=== PATIENT | male | born 1950 | race Caucasian/White ===

== ENCOUNTER 2020-08-04 14:18 | Inpatient (IN) | payer MEDICARE, SELFPAY ==
[2020-08-04 14:25] VITALS: BP 157/84; BP 158/90; PULSE 59; PULSE 78; RESP 17; TEMP 36.5; O2SAT 98; BMI 23.6
--- NOTE | 2020-08-04 14:45 | ECG_ITS ---
Test Reason : DIZZINESS Blood Pressure : / mmHG Vent. Rate : 077 BPM Atrial Rate : 077 BPM P-R Int : 180 ms QRS Dur : 096 ms QT Int : 396 ms P-R-T Axes : 079 -31 048 degrees QTc Int : 448 ms Sinus rhythm with marked sinus arrhythmia with occasional Premature atrial complexes Left anterior fascicular block RSR' or QR pattern in V1 suggests right ventricular conduction delay Abnormal ECG When compared with ECG of 29-APR-2020 15:19, ST no longer depressed in Inferior leads Heart rate has increased Referred By: Jose A Griffin Electronically Signed By:MISTY BURNS MD
--- NOTE | 2020-08-04 14:57 | CT_ITS ---
EXAMINATION: CT ANGIOGRAM HEAD CT ANGIOGRAM NECK CLINICAL INFORMATION: Dizziness. Vision changes. COMPARISON: None available. TECHNIQUE: Initial noncontrast emergency medicine imaging of the head and neck was performed. Noncontrast head CT was also performed. Test bolus sequences followed by intravenous administration 70 mL of Omnipaque 350. Helical imaging was performed in the axial plane from the aortic arch to the skull vertex. Delayed postcontrast imaging of the head was also performed. The data was processed at the cat scan technologist's workstation for generation of MIP sequences. Angled MIPs and volume rendered reformatted images were also generated at an offline 3D workstation. Stenoses are assessed in accordance with NASCET criteria unless otherwise indicated. DLP: 2367 mGy-cm FINDINGS: CT Head: There is no evidence of acute intracranial hemorrhage or edematous territorial infarction. Lacunar infarct of the right caudate head. Scattered hypoattenuation in the periventricular and deep white matter are consistent with mild to moderate microangiopathy. No additional loss of lo-white matter differentiation. The ventricles are normal in size and configuration. No evidence for obstructive hydrocephalus. No abnormal mass effect or midline shift. No extra-axial fluid collections. No pathologic intra-axial enhancement or regional oligemia. No acute soft tissue or osseous abnormalities. Moderate leftward nasal septal deviation.Moderate mucosal thickening of the paranasal sinuses. The mastoid air cells and middle ear cavities remain well aerated. Moderate degenerative arthropathy of the temporomandibular joints. Limited evaluation of the orbits without demonstrated abnormalities. CT Neck: The thyroid gland and remaining cervical soft tissues are within normal limits. Advanced degenerative disc disease at C5-C6 and C6-C7 with disc-osteophyte complexes. Moderate facet and uncovertebral joint arthropathy leads to osseous encroachment on the left greater than right neural foramina. CT Upper Chest: The visualized lung apices and upper mediastinum are within normal limits. Neck CTA: Aortic Arch: Normal contour and caliber with mild calcific atherosclerotic disease. Classic 3 vessel branching pattern of the aortic arch. Great Vessel Origins: No significant stenosis of the branch origins. Right Common Carotid Artery: Normal opacification without focal stenosis or occlusion. Cervical Right Internal Carotid Artery: Calcific atherosclerotic disease of the carotid bulb and proximal internal carotid artery without flow-limiting stenosis. Left Common Carotid Artery: Normal opacification without focal stenosis or occlusion. Cervical Left Internal Carotid Artery: Calcific atherosclerotic disease of the carotid bulb and proximal internal carotid artery without flow-limiting stenosis. Cervical Right Vertebral Artery: Normal opacification without focal stenosis or occlusion. Cervical Left Vertebral Artery: Dominant. Calcific atherosclerotic disease causes mild to moderate narrowing of the origin. Otherwise, normal opacification without focal stenosis or occlusion. Brain CTA: Intracranial Internal Carotid Arteries: Calcific atherosclerotic disease of the intracranial internal carotid arteries without occlusion or flow-limiting stenosis. Otherwise, normal contrast opacification of the petrous, cavernous, paraophthalmic, and supraclinoid segments of the internal carotid arteries without focal stenosis. Normal opacification of the ophthalmic arteries. Right Anterior Cerebral Artery: Normal A1 segment. Normal opacification of the distal segments of the ABHISHEK. Left Anterior Cerebral Artery: Normal A1 segment. Normal opacification of the distal segments of the ABHISHEK. Anterior Communicating Artery: Normal. Right Middle Cerebral Artery: Normal opacification of the M1 segment of the MCA without focal stenosis or occlusion. Normal arborization of the distal segments. Left Middle Cerebral Artery: Normal opacification of the M1 segment of the MCA without focal stenosis or occlusion. Normal arborization of the distal segments. Potential 0.3 cm aneurysm versus prominent bend/infundibulum of an anterior temporal lobe branch arising from the undersurface of the M1-M2 junction (image [id number]). Right Vertebral Artery: Normal opacification of the V4 segment. The posterior inferior cerebellar artery is not well opacified; however, there is no CT evidence of acute occlusion. Left Vertebral Artery: Normal opacification of the V4 segment. Normal opacification of the proximal segments of the posterior inferior cerebellar artery. Basilar Artery: Normal opacification without focal stenosis or occlusion. Normal appearance of the proximal superior cerebellar arteries. Right Posterior Cerebral Artery: Normal P1 segment. Normal opacification of the distal segments of the ASSISTANT PRODUCER. Left Posterior Cerebral Artery: Normal P1 segment. Normal opacification of the distal segments of the ASSISTANT PRODUCER. Normal opacification of the superior sagittal, straight, transverse, and sigmoid sinuses. CT/CT angio head neck IMPRESSION: 1. No evidence of acute intracranial hemorrhage or edematous territorial infarction. 2. Lacunar infarct of the right caudate head. Mild to moderate underlying microangiopathy. 3. CTA of the head and neck without proximal occlusion or flow-limiting stenosis. Calcific atherosclerotic disease causes mild to moderate narrowing of the origin of the left vertebral artery. 4. 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 5. Moderate multilevel degenerative spondyloarthropathy of the cervical spine. 6. Moderate paranasal sinus disease.
[2020-08-04 15:14] LABS: MANUAL DIFF FLAG NO
[2020-08-04 15:15] LABS: Basophils Percent Auto 0.5 % (0-2); Eosinophils Absolute Auto 0.1 X10*3/uL (0.0-0.4); Eosinophils Percent Auto 1.4 % (0-4); Hematocrit 40.1 % (42-52); Hemoglobin 13.6 g/dl (14.0-18.0); Imm Gran Abs Auto 0.02 X10*3/uL (0.00-0.03); Imm Gran Pct Auto 0.3 % (0.0-0.4); Lymphocytes Absolute Auto 1.1 X10*3/uL (1.2-4.9); Lymphocytes Percent Auto 17.7 % (20-40); Mean Corpuscular HGB Conc 33.9 g/dl (31.0-36.0); Mean Corpuscular Hemoglobin 31.8 pg (27.0-33.0); Mean Corpuscular Volume 93.7 fL (80-98); Mean Platelet Volume 9.4 fL (9.4-12.4); Monocytes Absolute Auto 0.5 X10*3/uL (0.1-1.2); Monocytes Percent Auto 7.2 % (2-11); Neutrophils Absolute Auto 4.7 X10*3/uL (2.0-8.3); Neutrophils Percent Auto 72.9 % (45-73); Platelet Count 211 X10*3/uL (160-400); Red Blood Count 4.28 X10*6/uL (4.60-5.80); Red Cell Distribution Width 11.9 % (11.0-16.0); White Blood Count 6.4 X10*3/uL (4.8-10.8)
[2020-08-04 15:25] LABS: Prothrombin Time 11.5 SEC (10.8-13.0)
[2020-08-04 15:28] LABS: Partial Thromboplastin Time 33.8 SEC (24.1-38.0)
[2020-08-04 15:47] LABS: Alanine Aminotransferase 15 U/L (0-40); Albumin Level 4.2 g/dL (3.5-5.0); Alkaline Phosphatase 59 U/L (39-117); Anion Gap 14 (12-20); Aspartate Amino Transferase 23 U/L (5-37); Bilirubin Total 0.7 mg/dL (0.0-1.0); Blood Urea Nitrogen 13 mg/dL (9-16); Carbon Dioxide 28 mmol/L (22-29); Chloride 100 mmol/L (96-108); Creatinine Clr Calc Pharmacy 72.5; Estimated Glomerular Filt Rate > 60; Glucose Random 112 mg/dL (60-115); Potassium 4.5 mmol/l (3.3-5.1); Sodium 137 mmol/L (135-145); Total Protein 7.2 g/dL (6.5-8.0)
[2020-08-04 15:51] LABS: Troponin-I High Sensitivity < 3.5 ng/L (<3.5-35.0)
[2020-08-04 16:19] VITALS: BP 137/76; PULSE 70; PULSE 73; RESP 16; O2SAT 98
[2020-08-04 16:20] VITALS: BP 141/94; BP 151/84; PULSE 72; PULSE 91
[2020-08-04] MEDS: iohexoL 350 MG/ML 100 ML INFUS..BTL IV (16:22)
--- NOTE | 2020-08-04 16:49 | ED.DIZZY ---
HPI - Dizziness General Chief Complaint: Dizziness Stated Complaint: vertigo Time Seen by Provider: 08/04/20 14:34 History of Present Illness HPI Narrative: Patient patient complains of dizziness double vision and difficulty ambulating which was noted when he neha from sleep this morning which is 4-1/2 hours ago, he went to sleep at about 11 30 and did not get up from bed until 10 30 in the morning and is not certain of when the symptoms began . He felt well and normal when he went to bed at 23:30 He has no headache he has no weakness to any arm or leg he has no trouble forming his words, he had no chest pain no palpitations no shortness of breath no fever Related Data Home Medications Medication Instructions Recorded Confirmed losartan 1 tab PO DAILY 08/04/20 08/04/20 Allergies Allergy/AdvReac Type Severity Reaction Status Date / Time penicillin V Allergy Unknown Verified 06/11/15 00:00 Penicillins [PENICILLINS] Allergy Unknown UNKNOWN-CHILDHOOD Unverified 06/03/20 15:03 REACTION Review of Systems Review of Systems: ROS is positive for dizziness, double vision, difficulty ambulating due to poor balance There is no headache no confusion no trouble speaking, no neck pain no limb weakness no chest pain or shortness of breath no palpitations, no fever no chills no cough, no abdominal pain no vomiting, no rash [facility] Past Medical History Attestation statement: The following information was validated with the patient. [facility] Narrative: Medical history is hypertension Medical History (Updated 08/04/20 @ 19:10 by SUE Garcia) Hypertension Social History Social History Smoked in Last 30 Days: No Use of substances other than those prescribed or required for medical reasons: No Advance Directives: No Advance Directives Information Provided: Yes Physical Exam Vital Signs: Vital Signs: Last Vital Signs Temp 97.7 F 08/04/20 14:25 Pulse 69 08/04/20 18:19 Resp 15 08/04/20 18:19 BP 126/79 08/04/20 18:19 Pulse Ox 99 08/04/20 18:19 Body Mass Index 23.6 Patient is A&O x3, no acute distress, speaking normally intelligently and interacting normally as he lays in bed Dr. elvis morales Bilateral ear exam is normal The neck is supple The chest is clear to auscultation bilaterally The heart no murmur auscultated The abdomen is soft nontender neck extremities are full range of motion x4 the skin no rash the neuro exam is done lying in bed as the patient was too dizzy to walk Motor strength was 5/5 x4 with equal symmetrical strength in legs and arms he could raise arms lift legs There was a gaze palsy on medial gaze of the left eye and his double vision did correct when he closed 1 eye but returned with both, cranial nerve exam was otherwise normal as tested Finger to nose was difficult with both eyes open but he was able to deny closed, speech was normal and gait was not tested NIH Stroke Scale Internal: Initial- Upon Arrival Level of Consciousness: Alert Level of Consciousness Questions: Answers both questions correctly Level of Consciousness Commands: Performs both tasks correctly Best Gaze: Partial gaze palsy Visual: No visual loss Facial Palsy: Normal Motor Arm (Right): No drift Motor Arm (Left): No drift Motor Leg (Right): No drift Motor Leg (Left): No drift Limb Ataxia: Absent Sensory: Normal Best Language: No aphasia Dysarthia: Normal Extinction and Inattention: No abnormality Score: 1 MDM - Dizziness MDM Narrative Medical decision making narrative: Patient was seen 4-1/2 hours after he 1st noticed his symptoms on waking which is outside the window for thrombolytics He is not aware of when his symptoms began as he went to sleep feeling normal and when he woke up he was symptomatic so it is unclear if symptoms began during the night. He did not wake up or get up during the night CTA did not reveal any bleed or acute thrombus and patient was admitted to medical service for stroke Differential Diagnosis Differential diagnosis: Likely cerebrovascular accident and transient cerebral ischemia Lab Data Attestation: I reviewed the patient's lab results. Result diagrams: 08/04/20 15:08 08/04/20 15:08 Labs: Lab Results 08/04/20 08/04/20 08/04/20 Range/Units 15:08 15:08 15:08 WBC 6.4 (4.8-10.8) X10*3/uL RBC 4.28 L (4.60-5.80) X10*6/uL Hgb 13.6 L (14.0-18.0) g/dl Hct 40.1 L (42-52) % MCV 93.7 (80-98) fL MCH 31.8 (27.0-33.0) pg MCHC 33.9 (31.0-36.0) g/dl RDW 11.9 (11.0-16.0) % Plt Count 211 (160-400) X10*3/uL MPV 9.4 (9.4-12.4) fL Immature Gran % (Auto) 0.3 (0.0-0.4) % Neut % (Auto) 72.9 (45-73) % Lymph % (Auto) 17.7 L (20-40) % [place] % (Auto) 7.2 (2-11) % Eos % (Auto) 1.4 (0-4) % Baso % (Auto) 0.5 (0-2) % Lymph # (Auto) 1.1 L (1.2-4.9) X10*3/uL [place] # (Auto) 0.5 (0.1-1.2) X10*3/uL Eos # (Auto) 0.1 (0.0-0.4) X10*3/uL Baso # (Auto) 0.0 (0.0-0.2) X10*3/uL Abs Immat Gran (auto) 0.02 (0.00-0.03) X10*3/uL Absolute Neuts (auto) 4.7 (2.0-8.3) X10*3/uL Absolute Nucleated RBC 0.000 (0.0-0.012) X10*3/uL Nucleated RBC % (auto) 0.0 (0.0-0.2) /100WBC PT (10.8-13.0) SEC INR (0.9-1.1) APTT (24.1-38.0) SEC Sodium 137 (135-145) mmol/L Potassium 4.5 (3.3-5.1) mmol/l Chloride 100 (96-108) mmol/L Carbon Dioxide 28 (22-29) mmol/L Anion Gap 14 (12-20) BUN 13 (9-16) mg/dL Creatinine 0.93 (0.5-1.4) mg/dL Estim Creat Clear Calc 72.5 Estimated GFR > 60 Random Glucose 112 (60-115) mg/dL Calcium 9.0 (8.4-10.2) mg/dL Total Bilirubin 0.7 (0.0-1.0) mg/dL AST 23 (5-37) U/L ALT 15 (0-40) U/L Alkaline Phosphatase 59 (39-117) U/L Troponin I High Sens < 3.5 (<3.5-35.0) ng/L Total Protein 7.2 (6.5-8.0) g/dL Albumin 4.2 (3.5-5.0) g/dL 11/18/20 Range/Units 15:08 WBC (4.8-10.8) X10*3/uL RBC (4.60-5.80) X10*6/uL Hgb (14.0-18.0) g/dl Hct (42-52) % MCV (80-98) fL MCH (27.0-33.0) pg MCHC (31.0-36.0) g/dl RDW (11.0-16.0) % Plt Count (160-400) X10*3/uL MPV (9.4-12.4) fL Immature Gran % (Auto) (0.0-0.4) % Neut % (Auto) (45-73) % Lymph % (Auto) (20-40) % [place] % (Auto) (2-11) % Eos % (Auto) (0-4) % Baso % (Auto) (0-2) % Lymph # (Auto) (1.2-4.9) X10*3/uL [place] # (Auto) (0.1-1.2) X10*3/uL Eos # (Auto) (0.0-0.4) X10*3/uL Baso # (Auto) (0.0-0.2) X10*3/uL Abs Immat Gran (auto) (0.00-0.03) X10*3/uL Absolute Neuts (auto) (2.0-8.3) X10*3/uL Absolute Nucleated RBC (0.0-0.012) X10*3/uL Nucleated RBC % (auto) (0.0-0.2) /100WBC PT 11.5 (10.8-13.0) SEC INR 1.0 (0.9-1.1) APTT 33.8 (24.1-38.0) SEC Sodium (135-145) mmol/L Potassium (3.3-5.1) mmol/l Chloride (96-108) mmol/L Carbon Dioxide (22-29) mmol/L Anion Gap (12-20) BUN (9-16) mg/dL Creatinine (0.5-1.4) mg/dL Estim Creat Clear Calc Estimated GFR Random Glucose (60-115) mg/dL Calcium (8.4-10.2) mg/dL Total Bilirubin (0.0-1.0) mg/dL AST (5-37) U/L ALT (0-40) U/L Alkaline Phosphatase (39-117) U/L Troponin I High Sens (<3.5-35.0) ng/L Total Protein (6.5-8.0) g/dL Albumin (3.5-5.0) g/dL Imaging Data CT scan - head: Radiologist's impression: MPRESSION: 1. No evidence of acute intracranial hemorrhage or edematous territorial infarction. 2. Lacunar infarct of the right caudate head. Mild to moderate underlying microangiopathy. 3. CTA of the head and neck without proximal occlusion or flow-limiting stenosis. Calcific atherosclerotic disease causes mild to moderate narrowing of the origin of the left vertebral artery. 4. 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 5. Moderate multilevel degenerative spondyloarthropathy of the cervical spine. 6. Moderate paranasal sinus disease. ECG Data Attestation: I personally reviewed and interpreted this ECG as follows: Interpretation: EKG was rate 77 with a sinus rhythm with a sinus arrhythmia p.r. was 180 QRS is 96 QT was normal, no acute ST changes noted Discharge Plan Discharge Clinical Impression: Acute ischemic stroke Patient Disposition: Admitted As Inpatient
--- NOTE | 2020-08-04 17:29 | MHC.STROKE ---
Addendum entered by Caterina Dumont RN 08/06/20 13:52: 08/05/20 at 1917, I NOTIFIED DR ANGEL OF THE MRI RESULTS, HE ADVISED TO FOLLOW THE STROKE MEASURES, ALL MEASURES IN PLACE. Addendum entered by Caterina Dumont RN 08/04/20 22:56: NIHSS = 3 was done on 08/04/20 at 1600. Original Note: I WAS NOTIFIED BY ED PA OF POTENTIAL STROKE PATIENT. I MET WITH THE PATIENT HE WALKED 2 MILES YESTERDAY. HE WENT TO BED AT 2330. HE WOKE AT 0700 AND 0900 AND LOOKED AT THE CLOCK, AND WENT TO THE BATHROOM. NO SYMPTOMS. HE SLEPT UNTIL 1030 AND WHEN HE WOKE THE CLOCK WAS VERY BLURRY WHEN BOTH EYES WERE OPEN. HE SAID HIS GAIT WAS OFF AND NEEDED TO HAVE HELP AND USE A WALKER TO GO TO THE BATHROOM. HE WAITED TO CALL 911 AND DID SO BECAUSE HE COUDLN'T GET HIMSELF TO THE CAR. LAST KNOWN WELL 0900, SYMPTOMS DISCOVERED 1030 THEREFORE OUT OF THE WINDOW FOR TPA ([place]TEPL[place]). CT-CTA H/N ORDERED, NO BLEED, NO LVO (LARGE VESSEL OCCLUSION). PATIENT CAN BE ADMITTED AT [facility]. MRI, ECHO, STATIN, PASSED HIS SWALLOW SCREEN, ASPIRIN GIVEN IN ED, PT/OT, STROKE EDUCATION INITIATED BUT HE WILL NEED REINFORCEMENT, I WILL FOLLOW UP WITH HIM TOMORROW. I DID REVIEW THE PLAN OF CARE WITH HIM, HE WAS CALLING HIS . NEUROLOGY CONSULT PENDING. NIHSS = 3.
[2020-08-04] MEDS: Aspirin 325 MG TABLET PO (17:45)
[2020-08-04 18:19] VITALS: BP 126/79; PULSE 69; RESP 15; O2SAT 99
[2020-08-04 19:12] LABS: COVID-19 Test Negative (Negative)
--- NOTE | 2020-08-04 19:52 | P.HPHOSP_ITS ---
History of Present Illness Date of Service: 08/04/20 Chief Complaint: blurry vision, unsteady gait this is a 70-year-old male with history of alcohol abuse, hypertension who presented to the emergency department with unsteady gait and blurry vision. Patient was in his usual state of health until he woke up around 10:30 this morning. when he tried to put on his socks noticed that he had blurry vision. he had woken several times overnight and was able to read the clock so he does not think his blurry vision was present prior to waking up at 10:30. He also noticed he felt off balance when walking and had to hold on to furniture so he would not fall. Patient underwent brain CT and head and neck CTA in the ED which showed lacunar infarct of the right caudate head with without occlusion or flow limiting stenosis on CTA. Lab work was unremarkable. Review of Systems Review of Systems: Yes all other systems are reviewed and are negative Constitutional: Constitutional: Denies headache(s) and Denies weakness ENT: Denies headache(s) Cardiovascular: Cardiovascular: Denies chest pain, Denies palpitations, Denies dyspnea and Denies dyspnea on exertion Respiratory: Respiratory: Denies dyspnea and Denies dyspnea on exertion Gastrointestinal: Gastrointestinal: Denies nausea and Denies vomiting Musculoskeletal: Musculoskeletal: Denies numbness Neurologic: Denies headache(s), Denies numbness, Reports Other visual disturbances (blurry vision that improves with closing left eye) and Denies weakness Endocrine: Endocrine: Denies palpitations [facility] Medical History (Updated 08/05/20 @ 11:23 by Ariana Mcfarland MD) Alcohol abuse Hypercholesteremia Hypertension Family History (Updated 08/04/20 @ 20:00 by SUE Raya) Mother Dementia Surgical History H/O inguinal hernia repair Social History (Updated 08/04/20 @ 20:01 by SUE Raya) Household Members: Spouse Housing: House Do you presently have visiting nurse or other home services: No Alcohol intake: current Alcohol intake frequency: 3 or more drinks per day Alcohol type: beer and hard liquor Smoking Status: Never smoker Smoked in Last 30 Days: No Use of substances other than those prescribed or required for medical reasons: No Substance Use Type: Marijuana Have you been hit, kicked, punched, or otherwise hurt by someone within the past year? If so, by whom?: No Do you feel safe in your current relationship?: Yes Is there a partner from a previous relationship who is making you feel unsafe now?: No Are you made to feel afraid or neglected: No Advance Directives: No Advance Directives Information Provided: Yes Advance Directives on File: No Do you have thoughts of harming others: None Do you have a plan to hurt others: No Plan Recently lost weight without trying: No service: No Current occupational status: retired [employer] Allergies Allergy/AdvReac Type Severity Reaction Status Date / Time penicillin V Allergy Unknown unknown-childhood Verified 08/05/20 00:24 rxn Home Medications Medication Instructions Recorded Confirmed Type losartan 1 tab PO DAILY 08/04/20 08/04/20 History Physical Exam Vital Signs and Narrative: Vital Signs: Last Vital Signs Temp 97.7 F 08/04/20 14:25 Pulse 69 08/04/20 18:19 Resp 15 08/04/20 18:19 BP 126/79 08/04/20 18:19 Pulse Ox 99 08/04/20 18:19 Body Mass Index 23.6 Const: Nutritional Appearance: well nourished Orientation/consciousness: patient oriented x3 HENMT: Head: Yes normocephalic and Yes atraumatic Eyes: Sclerae: sclerae normal Chest: Chest palpation & inspection: normal inspection of the chest Resp: Effort & Inspection: normal respiratory effort and no respiratory distress Auscultation: clear to auscultation bilaterally Cardio: Rate: regular rate Rhythm: regular rhythm GI: Palpation (GI): Soft to palpation and nontender Skin: General skin exam: no rashes or lesions noted Neuro: General: patient oriented x3 Cranial nerves: No Bilaterally intact EOM present (left eye palsy) and Yes Midline tongue present Motor exam (neuro): 5/5 motor strength present throughout Extrem: General: Yes normal to inspection Results Labs CBC and Chem 7: 08/05/20 05:26 08/05/20 05:26 Labs: Laboratory Results - last 24 hr 08/04/20 08/04/20 08/04/20 15:08 15:08 15:08 WBC 6.4 RBC 4.28 L Hgb 13.6 L Hct 40.1 L MCV 93.7 MCH 31.8 MCHC 33.9 RDW 11.9 Plt Count 211 MPV 9.4 Immature Gran % (Auto) 0.3 Neut % (Auto) 72.9 Lymph % (Auto) 17.7 L [place] % (Auto) 7.2 Eos % (Auto) 1.4 Baso % (Auto) 0.5 Lymph # (Auto) 1.1 L [place] # (Auto) 0.5 Eos # (Auto) 0.1 Baso # (Auto) 0.0 Abs Immat Gran (auto) 0.02 Absolute Neuts (auto) 4.7 Absolute Nucleated RBC 0.000 Nucleated RBC % (auto) 0.0 PT INR APTT Sodium 137 Potassium 4.5 Chloride 100 Carbon Dioxide 28 Anion Gap 14 BUN 13 Creatinine 0.93 Estim Creat Clear Calc 72.5 Estimated GFR > 60 Random Glucose 112 Calcium 9.0 Total Bilirubin 0.7 AST 23 ALT 15 Alkaline Phosphatase 59 Troponin I High Sens < 3.5 Total Protein 7.2 Albumin 4.2 COVID-19 ([facility]LO) COVID-19 [employer] 08/04/20 08/04/20 15:08 18:47 WBC RBC Hgb Hct MCV MCH MCHC RDW Plt Count MPV Immature Gran % (Auto) Neut % (Auto) Lymph % (Auto) [place] % (Auto) Eos % (Auto) Baso % (Auto) Lymph # (Auto) [place] # (Auto) Eos # (Auto) Baso # (Auto) Abs Immat Gran (auto) Absolute Neuts (auto) Absolute Nucleated RBC Nucleated RBC % (auto) PT 11.5 INR 1.0 APTT 33.8 Sodium Potassium Chloride Carbon Dioxide Anion Gap BUN Creatinine Estim Creat Clear Calc Estimated GFR Random Glucose Calcium Total Bilirubin AST ALT Alkaline Phosphatase Troponin I High Sens Total Protein Albumin COVID-19 ([facility]LO) Negative COVID-19 Clin Com See Note Imaging Radiologist's Impressions: Impressions Head/Neck CTA 08/04/20 14:57 IMPRESSION: 1. No evidence of acute intracranial hemorrhage or edematous territorial infarction. 2. Lacunar infarct of the right caudate head. Mild to moderate underlying microangiopathy. 3. CTA of the head and neck without proximal occlusion or flow-limiting stenosis. Calcific atherosclerotic disease causes mild to moderate narrowing of the origin of the left vertebral artery. 4. 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 5. Moderate multilevel degenerative spondyloarthropathy of the cervical spine. 6. Moderate paranasal sinus disease. Assessment and Plan (1) Ocular palsy of left eye: Status: Acute (2) Alcohol abuse: Status: Acute (3) Acute ischemic stroke: Status: Acute This is a 70-year-old male with a history of alcohol abuse and hypertension who presents to the emergency department the blurry vision and unsteady gait found to have left nerve palsy, lacunar infarct. blurry vision/unsteady gait Left eye palsy on exam, no other deficits noted Brain CT showing lacunar infarct - uncertain chronicity -neuro consult, brain MRI -PT/OT evaluation -ASA, statin -Can't rule out Wernicke's, given heavy alcohol use will treat with IV thiamine alcohol abuse No evidence of withdrawal at this time - start phenobarbital - IV thiamine - folic acid, multivitamin - care team evaluation HTN Hold losartan for possible stroke Follow BP closely dvt ppx - lovenox code status - full code This case was discussed with Dr. Zimmerman
--- NOTE | 2020-08-04 20:13 | PC.NURSE ---
REPORT TAKEN FROM RAI KABA, FIRST CONTACT WITH PT. RESTING IN BED SKIN PWD RESPIRATIONS EVEN UNLABORED. AWAITING BED ASSIGNMENT, AWARE OF PLAN OF CARE. REQUESTING FOOD. WILL CHECK MD ORDERS.
[2020-08-04 20:38] LABS: Magnesium 2.2 mg/dL (1.6-2.6)
--- NOTE | 2020-08-04 20:53 | PC.NURSE ---
PT CONTINUES TO AWAIT BED ASSIGNMENT FOR ADMISSION. PASSED SWALLOW EVAL. GIVEN SANDWICH AND PO FLUIDS. NO CHANGE IN PHYSICAL ASSESSMENT. USED URINAL WITHOUT ASSISTANCE. WILL CONTINUE TO MONITOR.
[2020-08-04 21:44] VITALS: BP 141/82; PULSE 75; RESP 18; TEMP 36.8; O2SAT 97
[2020-08-04] MEDS: PHENobarbitaL sodium 130 MG/ML VIAL 271 MG IM (22:32)
[2020-08-04] MEDS: Thiamine HCL 500 MG in 0.9 % Sodium Chloride 100 ML 210 MG IVPUSH (22:33)
--- NOTE | 2020-08-04 22:36 | P.EN_ITS ---
Event Note Date of Service: 08/04/20 Event Note: 70 y/o y/o male who presented from home due to unsteady gait and b lurry vision. To be admitted due to ischemic stroke, alcohol abuse. ROS and Physical exam as and H and P. PMHX: Alcohol abuse Hypertension PSx: H/O inguinal hernia repair Toxic habits: No hx of alcohol abuse, smoking or IVDA Assessment/Plan: 1- Ischemic stroke: Permissive hypertension, Tele monitor, neurochecks, follow up 2D echo, CTA head/neck reviewed, neurology consult in the am 2- Alcohol abuse: Start with thiamine/folate, advised alcohol cessation, phenorbital as per protocol Rest of the plan as discussed with SUE Villarreal per H and P
[2020-08-05] VITALS (7 sets, daily range): BP systolic 128–164; BP diastolic 79–104; PULSE 56–73; RESP 18; TEMP 36.6–37.1; O2SAT 94–100
--- NOTE | 2020-08-05 | MR_ITS ---
EXAMINATION: MR BRAIN WITHOUT CONTRAST CLINICAL INFORMATION: Blurry vision. Ataxia. Left eye palsy. COMPARISON: CTA head and neck from 08/04/2020. TECHNIQUE: MRI of the brain was obtained using routine sequences without contrast. FINDINGS: Subtle small region of restricted diffusion within the left midbrain (image 15/32). No additional focal restricted diffusion is demonstrated to suggest acute or subacute cerebral ischemia. Focus of susceptibility artifact within the left anterior mesial temporal lobe consistent with petechial microhemorrhage. Mild hemosiderin staining along the region of encephalomalacia in the left frontal operculum. Chronic appearing lacunar infarct of the right caudate head with surrounding T1 shortening. No evidence of acute Hemorrhagic products on heme-sensitive imaging. Scattered periventricular and deep white matter T2 FLAIR hyperintensities consistent with mild to moderate underlying microangiopathy. Proportional prominence of the ventricles and sulcal spaces without evidence of obstructive hydrocephalus.. No abnormal mass effect. No midline shift. Normal appearance of the pituitary gland. Normal positioning of the cerebellar tonsils. Normal arterial and venous vascular flow voids are present. Normal, homogeneous marrow signal. Moderate mucosal thickening of the paranasal sinuses with mucous retention cysts the in the right maxillary sinus. Small right-sided mastoid effusion. No signal abnormalities within the left-sided mastoid. MR/MR head/brain wo con IMPRESSION: 1. Small acute infarct of the left medial midbrain. 2. Moderate underlying microangiopathy. Chronic lacunar infarct of the right caudate head. Chronic encephalomalacia in the left frontal operculum. 3. Prominent sinonasal mucosal disease.
[2020-08-05] MEDS: Atorvastatin Calcium 80 MG TABLET PO ×2 (00:25→21:41)
[2020-08-05] MEDS: Folic Acid 1 MG TABLET PO ×2 (00:25→08:23)
[2020-08-05] MEDS: 0.9 % Sodium Chloride Flush 3 ML SYRINGE IVFLUSH ×4 (00:26→21:41)
[2020-08-05] MEDS: Enoxaparin Sodium 40 MG/0.4 ML SYRINGE SUBCUT ×2 (00:30→21:41)
[2020-08-05] MEDS: PHENobarbitaL sodium 130 MG/ML VIAL 203 MG IM ×2 (00:30→05:28)
[2020-08-05 06:43] LABS: MANUAL DIFF FLAG NO
[2020-08-05 07:02] LABS: Basophils Absolute Auto 0.1 X10*3/uL (0.0-0.2); Basophils Percent Auto 0.9 % (0-2); Eosinophils Absolute Auto 0.2 X10*3/uL (0.0-0.4); Eosinophils Percent Auto 3.6 % (0-4); Hematocrit 37.4 % (42-52); Hemoglobin 12.6 g/dl (14.0-18.0); Imm Gran Abs Auto 0.01 X10*3/uL (0.00-0.03); Imm Gran Pct Auto 0.2 % (0.0-0.4); Lymphocytes Absolute Auto 1.7 X10*3/uL (1.2-4.9); Lymphocytes Percent Auto 31.6 % (20-40); Mean Corpuscular HGB Conc 33.7 g/dl (31.0-36.0); Mean Corpuscular Hemoglobin 31.7 pg (27.0-33.0); Mean Platelet Volume 10.2 fL (9.4-12.4); Monocytes Absolute Auto 0.6 X10*3/uL (0.1-1.2); Neutrophils Percent Auto 53.7 % (45-73); Platelet Count 222 X10*3/uL (160-400); Red Blood Count 3.98 X10*6/uL (4.60-5.80); Red Cell Distribution Width 11.9 % (11.0-16.0); White Blood Count 5.5 X10*3/uL (4.8-10.8)
[2020-08-05 07:40] LABS: Anion Gap 11 (12-20); Blood Urea Nitrogen 14 mg/dL (9-16); Calcium 8.4 mg/dL (8.4-10.2); Carbon Dioxide 28 mmol/L (22-29); Chloride 103 mmol/L (96-108); Cholesterol 211 mg/dL; Creatinine Clr Calc Pharmacy 76.6; Estimated Glomerular Filt Rate > 60; Glucose Random 90 mg/dL (60-115); HDL Cholesterol 58 mg/dL; LDL Cholesterol Calculated 120 mg/dl; Potassium 3.8 mmol/l (3.3-5.1); Sodium 138 mmol/L (135-145); Triglycerides 167 mg/dL
[2020-08-05] MEDS: Aspirin Enteric Coated 81 MG TABLET.DR PO (08:23)
[2020-08-05] MEDS: PHENobarbitaL 15 MG TABLET 45 MG PO ×2 (08:24→21:41)
--- NOTE | 2020-08-05 10:21 | MHC.CARE ---
Recovery Support note: Patient is a 70 year old [place] speaking male who presented to [facility] ED and was medically admitted. Patient reports daily alcohol use and reports it has never been problematic for him. Patient states he has been drinking for a while and that it is a part of his daily routine. Patient reports he has never made any attempts to stop drinking as it has not interfered with his life. Patient reports his longest period of sobriety was 28 days, patient does not recall what he did during that period aside from not drinking. Discussed with patient how regular drinking can take a significant toll on his health and that it would be in his best interest to cut back or stop entirely. Patient acknowledged and reports he already decided that he would cut back. Patient reports he will stop drinking hard alcohol and will cut back on beer gradually. Discussed different forms of supports with patient, including IOP, outpatient therapy and AA. Patient is not interested in these supports at this time. Patient reports that he feels he will be able to manage on his own and with the support of friends and family. This development writer encouraged patient to think about about how he will fill his time after he leaves the hospital, patient acknowledged.
[2020-08-05] MEDS: Thiamine HCL 500 MG in 0.9 % Sodium Chloride 100 ML 210 MG IVPUSH (10:54)
--- NOTE | 2020-08-05 11:19 | P.CNNE_ITS ---
History of Present Illness Data of Consult Service Date: 08/05/20 Primary Care Provider: Alfredo Moody MD 70 years old man with chronic alcohol abuse was been actively drinking, at least 5-6 drinks a day, who noted that he was dizzy. This was yesterday. Around the same time he noted blurred vision actually double vision. When he tried to walk he was unsteady. There was no spinning sensation or mental confusion. There was no focal weakness. He came to emergency room and now he was lying in bed with the right eye patched. He said the double vision was noted when both eyes were open. He denied any difficulty with speaking, breathing, or swallowing. He denied any generalized weakness stating that he was unsteady. Review of Systems Constitutional: Constitutional: Denies headache(s) and Denies weakness ENT: Denies headache(s) Musculoskeletal: Musculoskeletal: Denies numbness Neurologic: Denies headache(s), Denies numbness, Reports Other visual disturbances (blurry vision that improves with closing left eye) and Denies weakness PMFSH Past Medical History Medical History (Updated 08/05/20 @ 11:23 by Ariana Mcfarland MD) Alcohol abuse Hypercholesteremia Hypertension Family History Family History (Updated 08/04/20 @ 20:00 by SUE Raya) Mother Dementia Surgical History Surgical History H/O inguinal hernia repair Social History Social History (Updated 08/04/20 @ 20:01 by SUE Raya) Household Members: Spouse Housing: House Do you presently have visiting nurse or other home services: No Alcohol intake: current Alcohol intake frequency: 3 or more drinks per day Alcohol type: beer and hard liquor Smoking Status: Never smoker Smoked in Last 30 Days: No Use of substances other than those prescribed or required for medical reasons: No Substance Use Type: Marijuana Have you been hit, kicked, punched, or otherwise hurt by someone within the past year? If so, by whom?: No Do you feel safe in your current relationship?: Yes Is there a partner from a previous relationship who is making you feel unsafe now?: No Are you made to feel afraid or neglected: No Advance Directives: No Advance Directives Information Provided: Yes Advance Directives on File: No Do you have thoughts of harming others: None Do you have a plan to hurt others: No Plan Recently lost weight without trying: No Meds Allergies Allergy/AdvReac Type Severity Reaction Status Date / Time penicillin V Allergy Unknown unknown-childhood Verified 08/05/20 00:24 rxn Home Medications Medication Instructions Recorded Confirmed Type losartan 1 tab PO DAILY 08/04/20 08/04/20 History Physical Exam Vital Signs: Vital Signs: Last Vital Signs Temp 97.8 F 08/05/20 07:55 Pulse 56 08/05/20 07:55 Resp 18 08/05/20 07:55 BP 148/85 H 08/05/20 07:55 Pulse Ox 98 08/05/20 07:55 Body Mass Index 23.6 He was alert and awake with normal spontaneity and fluency of speech and flat affect. He was talking slowly. Comprehension was intact. Pupils were about 3- 4 mm round reactive to light. Right eye did not come all the way laterally towards confucianist with the slight nystagmus horizontally in the left eye was stopping in the middle with rightward gaze. Face was symmetrical. There was no obvious focal arm or leg weakness. Moderate skyqtj-er-irib ataxia was noted. Kdon-fx-[id number] testing did not reveal any significant abnormality. Deep tendon reflexes were absent with flexor plantars. He was able to get up and walk in a slightly unsteady gait. Speech was normal. Results Labs CBC & Chem 7: 08/05/20 05:26 08/05/20 05:26 Labs: Short CBC 08/04/20 08/05/20 Range/Units 15:08 05:26 WBC 6.4 5.5 (4.8-10.8) X10*3/uL Hgb 13.6 L 12.6 L (14.0-18.0) g/dl Hct 40.1 L 37.4 L (42-52) % Plt Count 211 222 (160-400) X10*3/uL BMP 08/04/20 08/05/20 15:08 05:26 Sodium 137 138 Potassium 4.5 3.8 Chloride 100 103 Carbon Dioxide 28 28 BUN 13 14 Creatinine 0.93 0.88 Calcium 9.0 8.4 D Liver Function 08/04/20 Range/Units 15:08 Total Bilirubin 0.7 (0.0-1.0) mg/dL AST 23 (5-37) U/L ALT 15 (0-40) U/L Alkaline Phosphatase 59 (39-117) U/L Albumin 4.2 (3.5-5.0) g/dL His head CT revealed mild microvascular disease and mild diffuse atrophy. CTA did not reveal any significant lesion. 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 He was also unsteady. Mainstay of management is supplementation with thiamine and folate and B complex, hydration, completely quitting alcohol, and controlling vascular risk factors. An MRI brain is also recommended to define pathology. (2) Internuclear ophthalmoplegia: Status: Acute (3) Ataxia: Status: Acute (4) Chronic alcoholism: Status: Acute (5) Wernickes encephalopathy: Status: Acute Procedures Abscess I/D Date of Service: 08/05/20
--- NOTE | 2020-08-05 11:56 | MHC.CM.PN ---
CM met with patient at the bedside who reports he is independent and lives with . Patient does have a HCP and a copy is on file. Discussed discharge plan, home no services. February will provide transportation. CM will continue to follow patient for discharge needs.
--- NOTE | 2020-08-05 16:07 | HO.PM.IMPN ---
Subjective Subjective Date of Service: 08/05/20 Interval History: the patient was seen and evaluated this morning Laying in bed, feels comfortable Denies any fever, chills or shortness of breath Complaining of double vision No reported other overnight events. Systemic review: No fever, chills or weakness No chest pain, palpitation No shortness of breath or coughing No abdominal pain, nausea or vomiting No urinary symptoms No any rash or wounds Physical Exam Vital Signs: Vital Signs: Last Vital Signs Temp 98.1 F 08/05/20 15:24 Pulse 68 08/05/20 15:24 Resp 18 08/05/20 15:24 BP 141/89 H 08/05/20 15:24 Pulse Ox 100 08/05/20 15:24 Body Mass Index 23.6 Constitutional : Alert, oriented, not in distress Neck : Normal inspection, Supple Cardiovascular : RRR, S1 S2, no lower extremity edema Respiratory : Good bilateral air entry, no crackles, wheezes or rhonchi Gastrointestinal: soft, lax, Normal bowel sounds, Non tender Skin : Warm/Dry, No rash Neurological : Alert & oriented x3, double vision, left eye nystagmus horizontally, mild finger to nose ataxia Objective Data Current Medications Generic Name Dose Route Start Last Admin Trade Name Freq PRN Reason Stop Dose Admin Acetaminophen 650 mg 08/04/20 19:32 Acetaminophen 325 Mg Tablet PO Q6H PRN Pain, Mild (Pain Scale 1-3) Aspirin 81 mg 08/05/20 09:00 08/05/20 08:23 Aspirin Enteric Coated 81 Mg Tablet.Dr PO 81 mg DAILY DIANA Administration Atorvastatin Calcium 80 mg 08/04/20 21:00 08/05/20 00:25 Atorvastatin Calcium 80 Mg Tablet PO 80 mg BEDTIME [facility] Administration Docusate Sodium 100 mg 08/04/20 19:32 Docusate Sodium 100 Mg Capsule PO DAILY PRN Constipation Enoxaparin Sodium 40 mg 08/04/20 22:00 08/05/20 00:30 Enoxaparin Sodium 40 Mg/0.4 Ml Syringe SUBCUT 40 mg Q24H [facility] Administration Folic Acid 1 mg 08/04/20 19:55 08/05/20 08:23 Folic Acid 1 Mg Tablet PO 1 mg DAILY [facility] Administration Medication 1 each 08/05/20 09:00 No Benzodiazepines MISCELLANE DAILY [facility] Multivitamins/Minerals 1 tab 08/05/20 09:00 08/05/20 08:23 Multivitamin With Minerals Tablet PO 1 tab DAILY DIANA Administration Ondansetron HCl 4 mg 08/04/20 19:32 Ondansetron Hcl 4 Mg/2 Ml Vial IVPUSH Q8H PRN Nausea and Vomiting Pharmacy Consult 1 each 08/04/20 18:40 Consult Rx Perform Med Rec MISCELLANE ONCE PRN Consult order Pharmacy Consult 1 each 08/04/20 19:42 Consult Rx Etoh Phenob Dosing MISCELLANE ONCE PRN Consult order Protocol Phenobarbital 45 mg 08/05/20 09:00 08/05/20 08:24 Phenobarbital 15 Mg Tablet PO 08/06/20 21:01 45 mg BID DIANA Administration Phenobarbital 30 mg 08/07/20 09:00 Phenobarbital 30 Mg Tablet PO 08/08/20 21:01 BID DIANA Phenobarbital 15 mg 08/09/20 09:00 Phenobarbital 15 Mg Tablet PO 08/10/20 09:01 DAILY DIANA Sodium Chloride 3 ml 08/05/20 00:00 08/05/20 08:24 0.9 % Sodium Chloride Flush 3 Ml Syringe IVFLUSH 3 ml QSHIFT DIANA Administration Thiamine HCl 500 mg 08/05/20 21:00 Thiamine Hcl 100 Mg Tablet PO Q12H DIANA Labs CBC & Chem 7: 08/05/20 05:26 08/05/20 05:26 Assessment and Plan (1) Ocular palsy of left eye: Status: Acute (2) Alcohol abuse: Status: Acute (3) Acute ischemic stroke: Status: Acute Assessment and Plan: This is a 70-year-old male with a history of alcohol abuse and hypertension who presents to the emergency department the blurry vision and unsteady gait found to have left nerve palsy, lacunar infarct. 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 thiamine folic acid, multivitamin care team evaluation HTN Resume losartan Follow BP closely dvt ppx lovenox
[2020-08-05] MEDS: Thiamine HCL 100 MG TABLET 500 MG PO (21:40)
[2020-08-06 04:00] VITALS: BP 132/81; PULSE 77; RESP 18; TEMP 36.8; O2SAT 97
[2020-08-06 06:18] LABS: Hemoglobin 12.8 g/dl (14.0-18.0); Mean Corpuscular HGB Conc 34.6 g/dl (31.0-36.0); Mean Corpuscular Hemoglobin 32.2 pg (27.0-33.0); Mean Corpuscular Volume 93.2 fL (80-98); Mean Platelet Volume 10.1 fL (9.4-12.4); Platelet Count 208 X10*3/uL (160-400); Red Blood Count 3.97 X10*6/uL (4.60-5.80); Red Cell Distribution Width 11.9 % (11.0-16.0)
[2020-08-06 06:49] LABS: Anion Gap 12 (12-20); Blood Urea Nitrogen 14 mg/dL (9-16); Calcium 8.4 mg/dL (8.4-10.2); Carbon Dioxide 26 mmol/L (22-29); Chloride 103 mmol/L (96-108); Creatinine Clr Calc Pharmacy 77.5; Estimated Glomerular Filt Rate > 60; Glucose Random 86 mg/dL (60-115); Potassium 3.7 mmol/l (3.3-5.1); Sodium 137 mmol/L (135-145)
[2020-08-06 08:00] VITALS: BP 153/97; PULSE 67; RESP 20; TEMP 36.4; O2SAT 97
[2020-08-06] MEDS: Aspirin Enteric Coated 81 MG TABLET.DR PO (08:57)
[2020-08-06] MEDS: Folic Acid 1 MG TABLET PO (08:57)
[2020-08-06] MEDS: 0.9 % Sodium Chloride Flush 3 ML SYRINGE IVFLUSH (08:58)
[2020-08-06] MEDS: PHENobarbitaL 15 MG TABLET 45 MG PO (08:58)
[2020-08-06] MEDS: Thiamine HCL 100 MG TABLET 500 MG PO (08:58)
[2020-08-06 11:30] VITALS: BP 136/92; PULSE 91; RESP 20; TEMP 36.3; O2SAT 99
[2020-08-06 12:03] VITALS: BP 136/92; PULSE 91; O2SAT 99
--- NOTE | 2020-08-06 12:12 | MHC.CM.PN ---
patient is being discharged today home no services. Patient's june [phone] will provide transportation.
--- NOTE | 2020-08-06 12:23 | PM.DS ---
DS: Providers Provider Date of admission: 08/04/20 19:32 Primary care physician: Alfredo Moody MD Consults: 08/04/20 19:35 Consult to Neurology Routine Consulting Provider: [facility] Reason for consultation: blurry vision, left eye palsy, ataxia 08/04/20 19:42 Consult to Care Team Routine Comment: Reason for consultation: etoh use DS: Diagnosis Discharge Diagnosis (1) Ocular palsy of left eye: Status: Acute (2) Alcohol abuse: Status: Acute (3) Acute ischemic stroke: Status: Acute (4) Wernickes encephalopathy: Status: Acute (5) Chronic alcoholism: Status: Acute (6) Ataxia: Status: Acute (7) Internuclear ophthalmoplegia: Status: Acute (8) Double vision: Status: Acute DS: Medications Discharge Medications Home Medications: Home Medications Medication Instructions Recorded Confirmed losartan 1 tab PO DAILY 08/04/20 08/04/20 Previous Rx's Medication Instructions Recorded aspirin 81 mg PO DAILY #30 tab 08/06/20 atorvastatin 80 mg PO BEDTIME #30 tab 08/06/20 folic acid 1 mg PO DAILY #30 tab 08/06/20 multivitamin,tx-minerals [Vitamins 1 tab PO DAILY #30 tab 08/06/20 and Minerals] thiamine HCl (vitamin B1) 500 mg PO Q12H #60 tab 08/06/20 DS: Summary Hospital Course Hospital Course: Admission note HPI this is a 70-year-old male with history of alcohol abuse, hypertension who presented to the emergency department with unsteady gait and blurry vision. Patient was in his usual state of health until he woke up around 10:30 this morning. when he tried to put on his socks noticed that he had blurry vision. he had woken several times overnight and was able to read the clock so he does not think his blurry vision was present prior to waking up at 10:30. He also noticed he felt off balance when walking and had to hold on to furniture so he would not fall. Patient underwent brain CT and head and neck CTA in the ED which showed lacunar infarct of the right caudate head with without occlusion or flow limiting stenosis on CTA. Lab work was unremarkable. Hospital course The patient was admitted to the hospital for evaluation of ataxia and diplopia. Brain images including CT scan and MRI were consistent with acute left midbrain stroke causing internuclear ophthalmoplegia. He was evaluated by neurologist Dr. Mcfarland who thought also chronic alcohol abuse might be contributing to this and requested adding multivitamins treatment. He was started on aspirin, atorvastatin, thiamine, folate and multivitamins with fair response as his vision and gait improved. He was evaluated by Physical and Occupational therapy who felt the patient is safe enough to be discharged home. To be discharged with visiting nurses services for safe ambulation and movement. He was discussed about the need to completely quit alcohol. He seems to be interested in that and will try his best. To follow-up with PCP as outpatient Time Spent with Patient Time attestation: Total time spent providing and/or coordinating discharge services: Physical Exam Vital Signs: Vital Signs: Last Vital Signs Temp 98.1 F 08/05/20 15:24 Pulse 68 08/05/20 15:24 Resp 18 08/05/20 15:24 BP 141/89 H 08/05/20 15:24 Pulse Ox 100 08/05/20 15:24 Body Mass Index 23.6 Constitutional : Alert, oriented, not in distress Neck : Normal inspection, Supple Cardiovascular : RRR, S1 S2, no lower extremity edema Respiratory : Good bilateral air entry, no crackles, wheezes or rhonchi Gastrointestinal: soft, lax, Normal bowel sounds, Non tender Skin : Warm/Dry, No rash Neurological : Alert & oriented x3, double vision, left eye fixed in the middle, nystagmus horizontally, mild finger to nose ataxia DS: Data Data Completed and Pending Labs on day of discharge: 08/04/20 14:45 ECG 12 lead EKG Stat EKG Documentation DIRECTED 08/04/20 14:57 CT angio head neck Stat 08/04/20 15:08 Complete Blood Count Auto Diff Stat Comprehensive Met. Panel Stat Magnesium Stat Partial Thromboplastin Time Stat Prothrombin Time INR Stat Troponin-I High Sensitivity Stat 08/04/20 16:21 iohexoL 350 MG/ML [Omnipaque 350 MG/ML] 100 ml IV ONCE ONE 08/04/20 17:20 Aspirin 325 mg PO ONCE ONE 08/04/20 18:40 Consult Rx Perform Med Rec 1 each MISCELLANE ONCE PRN 08/04/20 18:47 COVID-19 ID NOW ([place]) Stat 08/04/20 19:42 Consult Rx EtOH Phenob Dosing 1 each MISCELLANE ONCE PRN 11/18/20 19:49 Transfer Order Routine 08/04/20 20:15 PHENobarbitaL sodium 271 mg IM ONCE ONE 08/04/20 20:15 Add Laboratory Test Stat 08/04/20 21:00 Thiamine HCL 500 mg 0.9 % Sodium Chloride [Ns] 100 ml IVPUSH Q12H Thiamine HCL 500 mg 0.9 % Sodium Chloride [Ns] 100 ml IVPUSH Q12H 08/05/20 MR head/brain wo con Routine 08/05/20 00:00 PHENobarbitaL sodium 203 mg IM 0000,0300 08/05/20 01:00 PHENobarbitaL sodium 203 mg IM 0100,0400 08/05/20 05:26 Basic Metabolic Panel DAILY@0600 Complete Blood Count Auto Diff DAILY@0600 Lipid Panel Routine 08/06/20 05:16 Basic Metabolic Panel DAILY@0600 Complete Blood Count no Diff DAILY@0600 Laboratory Last Values WBC 5.0 X10*3/uL (4.8-10.8) 08/06/20 05:16 RBC 3.97 X10*6/uL (4.60-5.80) L 08/06/20 05:16 Hgb 12.8 g/dl (14.0-18.0) L 08/06/20 05:16 Hct 37.0 % (42-52) L 08/06/20 05:16 MCV 93.2 fL (80-98) 08/06/20 05:16 MCH 32.2 pg (27.0-33.0) 08/06/20 05:16 MCHC 34.6 g/dl (31.0-36.0) 08/06/20 05:16 RDW 11.9 % (11.0-16.0) 08/06/20 05:16 Plt Count 208 X10*3/uL (160-400) 08/06/20 05:16 MPV 10.1 fL (9.4-12.4) 08/06/20 05:16 Immature Gran % (Auto) 0.2 % (0.0-0.4) 08/05/20 05:26 Neut % (Auto) 53.7 % (45-73) 08/05/20 05:26 Lymph % (Auto) 31.6 % (20-40) 08/05/20 05:26 [place] % (Auto) 10.0 % (2-11) 08/05/20 05:26 Eos % (Auto) 3.6 % (0-4) 08/05/20 05:26 Baso % (Auto) 0.9 % (0-2) 08/05/20 05:26 Lymph # (Auto) 1.7 X10*3/uL (1.2-4.9) 08/05/20 05:26 [place] # (Auto) 0.6 X10*3/uL (0.1-1.2) 08/05/20 05:26 Eos # (Auto) 0.2 X10*3/uL (0.0-0.4) 08/05/20 05:26 Baso # (Auto) 0.1 X10*3/uL (0.0-0.2) 08/05/20 05:26 Abs Immat Gran (auto) 0.01 X10*3/uL (0.00-0.03) 08/05/20 05:26 Absolute Neuts (auto) 3.0 X10*3/uL (2.0-8.3) 08/05/20 05:26 Absolute Nucleated RBC 0.000 X10*3/uL (0.0-0.012) 08/06/20 05:16 Nucleated RBC % (auto) 0.0 /100WBC (0.0-0.2) 08/06/20 05:16 PT 11.5 SEC (10.8-13.0) 08/04/20 15:08 INR 1.0 (0.9-1.1) 08/04/20 15:08 APTT 33.8 SEC (24.1-38.0) 08/04/20 15:08 Sodium 137 mmol/L (135-145) 08/06/20 05:16 Potassium 3.7 mmol/l (3.3-5.1) 08/06/20 05:16 Chloride 103 mmol/L (96-108) 08/06/20 05:16 Carbon Dioxide 26 mmol/L (22-29) 08/06/20 05:16 Anion Gap 12 (12-20) 08/06/20 05:16 BUN 14 mg/dL (9-16) 08/06/20 05:16 Creatinine 0.87 mg/dL (0.5-1.4) 08/06/20 05:16 Estim Creat Clear Calc 77.5 08/06/20 05:16 Estimated GFR > 60 08/06/20 05:16 Random Glucose 86 mg/dL (60-115) 08/06/20 05:16 Calcium 8.4 mg/dL (8.4-10.2) 08/06/20 05:16 Magnesium 2.2 mg/dL (1.6-2.6) 08/04/20 15:08 Total Bilirubin 0.7 mg/dL (0.0-1.0) 08/04/20 15:08 AST 23 U/L (5-37) 08/04/20 15:08 ALT 15 U/L (0-40) 08/04/20 15:08 Alkaline Phosphatase 59 U/L (39-117) 08/04/20 15:08 Troponin I High Sens < 3.5 ng/L (<3.5-35.0) 08/04/20 15:08 Total Protein 7.2 g/dL (6.5-8.0) 08/04/20 15:08 Albumin 4.2 g/dL (3.5-5.0) 08/04/20 15:08 Triglycerides 167 mg/dL 08/05/20 05:26 Cholesterol 211 mg/dL 08/05/20 05:26 LDL Cholesterol, Calc 120 mg/dl 08/05/20 05:26 HDL Cholesterol 58 mg/dL 08/05/20 05:26 COVID-19 ([facility]ARLO) Negative (Negative) 08/04/20 18:47 COVID-19 Clin Com See Note 08/04/20 18:47 Brain MRI IMPRESSION: 1. Small acute infarct of the left medial midbrain. 2. Moderate underlying microangiopathy. Chronic lacunar infarct of the right caudate head. Chronic encephalomalacia in the left frontal operculum. 3. Prominent sinonasal mucosal disease. Brain CT A IMPRESSION: 1. No evidence of acute intracranial hemorrhage or edematous territorial infarction. 2. Lacunar infarct of the right caudate head. Mild to moderate underlying microangiopathy. 3. CTA of the head and neck without proximal occlusion or flow-limiting stenosis. Calcific atherosclerotic disease causes mild to moderate narrowing of the origin of the left vertebral artery. 4. 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 5. Moderate multilevel degenerative spondyloarthropathy of the cervical spine. 6. Moderate paranasal sinus disease. Discharge Plan Discharge Patient Disposition: Home Health Service Referrals: Alfredo Moody MD [Primary Care Provider] - Discharge Medications: New atorvastatin 80 mg Tablet 80 mg PO BEDTIME Qty: 30 RF: 0 aspirin 81 mg Tablet,Delayed Release (Dr/Ec) 81 mg PO DAILY Qty: 30 RF: 0 folic acid 1 mg Tablet 1 mg PO DAILY Qty: 30 RF: 2 thiamine HCl (vitamin B1) 100 mg Tablet 500 mg PO Q12H Qty: 60 RF: 2 Vitamins and Minerals Tablet 1 tab PO DAILY Qty: 30 RF: 2 Continued losartan 25 mg tablet 1 tab PO DAILY RF: 0 Discharge Orders: Discharge Order (Routine); Ordered 08/06/20 Ordered By: Sammi Martinez Diet: advance to usual diet Activity on Discharge: As tolerated Visit Report Forms: Patient Portal Discharge page Care Plan Goals: Read below Health Concerns: Read below Plan of Treatment: You were admitted to the hospital for evaluation of double vision and unsteady gait. Your symptoms were concerning for alcohol induced brain injury and you were started on vitamin replacement therapy. Images for your brain including a CT scan and MRI were consistent with small acute stroke to mid-brain. You were evaluated by neurologist Dr. Mcfarland who recommended treatment for the stroke and total abstinence from alcohol. Start aspirin and statin as prescribed Quit alcohol completely Please call [phone] to schedule a follow-up visit with Dr. Mcfarland within 2 weeks To do home therapy with visiting nurses
== END 2020-08-06 14:30 | disposition home health service (06) | DRG 65 ==
LOC: HO.ED 19:10 → HO.IMC 21:11
PROVIDERS: Physician Assistant Medical; Admitting Provider Internal Medicine; Emergency Provider Emergency Medicine; PCP Internal Medicine; Visit Provider Student in an Organized Health Care Education/Training Program
DX: I63.9 Cerebral infarction, unspecified (principal); E51.2 Wernicke's encephalopathy; H51.22 Internuclear ophthalmoplegia, left eye; E78.00 Pure hypercholesterolemia, unspecified; I10 Essential (primary) hypertension; R29.703 NIHSS score 3; F10.20 Alcohol dependence, uncomplicated; Z20.828 Contact with and (suspected) exposure to other viral communicable diseases; Z88.0 Allergy status to penicillin; Z79.82 Long term (current) use of aspirin; Z79.899 Other long term (current) drug therapy
CPT/HCPCS: 36415; 70496; 70498; 70551; 80048; 80053; 80061; 83735; 84484; 85025; 85027; 85610; 85730; 87635; 93005; 97116; 97161; 97167; 97530; 99285; J1650; J2560; J3411; Q9967

== ENCOUNTER → 2020-08-23 08:23 | Outpatient (REF) | payer MEDICARE, BC, SELFPAY ==
--- NOTE | 2020-08-23 08:30 | CA_ITS ---
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 The visually estimated ejection fraction is between 55-60%. - There is mild calcification of the aortic valve. - There is mild mitral annular calcification. - There is mild dilatation of the ascending aorta measuring 4.10 cm. Findings Left Ventricle Normal left ventricular cavity size. There is normal left ventricular wall thickness. The left ventricular systolic function is normal. The visually estimated ejection fraction is between 55-60%. There is no evidence of regional wall motion abnormalities. Diastolic function is indeterminate on the basis of available data. Right Ventricle Normal right ventricular cavity size and systolic function. Atria Both atria are normal in size. Aortic Valve There is mild calcification of the aortic valve. There is no aortic valve stenosis. There is trace (trivial) aortic valve regurgitation. Mitral Valve There is mild mitral annular calcification. There is trace mitral valve regurgitation. There is no mitral valve stenosis. Pulmonic Valve The pulmonic valve was not well visualized. There is trace to mild pulmonic valve regurgitation. Tricuspid Valve Normal tricuspid valve structure. There is trace tricuspid valve regurgitation. The pulmonary artery systolic pressure is normal. Great Vessels There is mild dilatation of the ascending aorta measuring 4.10 cm. Venous The inferior vena cava is normal in size and collapses greater than 50% with inspiration. Pericardium/Pleural There is no evidence of pericardial effusion. Prior Study Comparison Changes noted compared to prior study dated: 07/20/2017. Increase in ascending aortic size. Measurements 2D Linear Measurements IVSd: 0.92 0.6-0.9/0.6-1.0 cm LVIDd: 5.31 3.9-5.3/4.2-5.9 cm LVIDd Index: 2.93 2.4-3.2/2.2-3.1 cm/m2 LVIDs: 3.24 2.0-3.6 cm LVPWd: 0.88 0.7-1.1 cm Ao Root: 3.40 2.1-3.5 cm LA Diam: 2.50 2.7-3.8/3.0-4.0 cm LAIDs Index: 1.38 1.5-2.3 cm/m2 LV Mass: 217.93 67-162/88-224 g LV Mass Index: 120.41 43-95/49-115 g/m2 LVOT Diam: 2.20 3.0+(-)1.3 cm 2D Systolic Function EF 4C: 60.40 >55% EF 2C: 53.10 >55% EF BiP: 58.10 >55% Mitral Valve MV Pk E: 0.57 MV PK A: 0.47 MV Decel Time: 345.00 E/A: 1.20 E'Lateral: 12.10 E'Medial: 6.96 E/E' Med: 8.20 E/E' Lat: 4.70 PHT: 101.00 MVA PHT: 2.18 Decel [place]: 1.64 Aortic Valve AoV Pk Nasir: 1.32 AoV Pk Grad: 7.00 LVOT LVOT Pk Nasir: 1.03 LVOT Mn Nasir: 0.68 LVOT VTI: 0.24 LVOT Pk Grad: 4.00 LVOT Mn Grad: 2.00 LVOT Diam: 2.20 LVOT Area: 3.80 Diastolic Function MV Pk E: 0.57 MV Pk A: 0.47 E/A: 1.20 E'Medial: 6.96 E/E' Med: 8.20 E' Laterial: 12.10 E/E' Lat: 4.70 Tricuspid Valve TR Pk Nasir: 2.21 TR Pk Grad: 20.00 RA Press: 3.00 RVSP: 23.00 Great Vessels Aorta Ao Root-2D: 3.40 2.0-3.7 cm Ao Asc: 4.10 2.1-3.4 cm Updated in Other Vendor System with Status of Final Pedro Luis Nunez MD electronically signed on 08/23/2020 11:12:07 AM with status of Final
== END ==
LOC: HO.CARD 08:23
PROVIDERS: PCP Internal Medicine; Visit Provider Internal Medicine
DX: I49.3 Ventricular premature depolarization (principal); I49.9 Cardiac arrhythmia, unspecified; Z86.73 Personal history of transient ischemic attack (TIA), and cerebral infarction without residual deficits
CPT/HCPCS: 93306

== ENCOUNTER 2020-12-29 08:28 | Outpatient (REF) | payer MEDICARE, BC, SELFPAY ==
[2020-12-29 10:31] LABS: MANUAL DIFF FLAG NO
[2020-12-29 11:00] LABS: Basophils Absolute Auto 0.1 X10*3/uL (0.0-0.2); Basophils Percent Auto 0.9 % (0-2); Eosinophils Absolute Auto 0.3 X10*3/uL (0.0-0.4); Eosinophils Percent Auto 4.9 % (0-4); Hematocrit 39.6 % (42-52); Hemoglobin 13.1 g/dl (14.0-18.0); Imm Gran Abs Auto 0.02 X10*3/uL (0.00-0.03); Imm Gran Pct Auto 0.4 % (0.0-0.4); Lymphocytes Absolute Auto 1.9 X10*3/uL (1.2-4.9); Lymphocytes Percent Auto 35.6 % (20-40); Mean Corpuscular HGB Conc 33.1 g/dl (31.0-36.0); Mean Corpuscular Volume 90.6 fL (80-98); Mean Platelet Volume 10.4 fL (9.4-12.4); Monocytes Absolute Auto 0.4 X10*3/uL (0.1-1.2); Monocytes Percent Auto 8.3 % (2-11); Neutrophils Absolute Auto 2.7 X10*3/uL (2.0-8.3); Neutrophils Percent Auto 49.9 % (45-73); Platelet Count 229 X10*3/uL (160-400); Red Blood Count 4.37 X10*6/uL (4.60-5.80); Red Cell Distribution Width 11.9 % (11.0-16.0); White Blood Count 5.3 X10*3/uL (4.8-10.8)
[2020-12-29 11:32] LABS: Alanine Aminotransferase 31 U/L (0-40); Albumin Level 4.2 g/dL (3.5-5.0); Alkaline Phosphatase 69 U/L (39-117); Anion Gap 10 (12-20); Aspartate Amino Transferase 28 U/L (5-37); Blood Urea Nitrogen 13 mg/dL (9-16); Calcium 9.4 mg/dL (8.4-10.2); Carbon Dioxide 28 mmol/L (22-29); Chloride 104 mmol/L (96-108); Cholesterol 125 mg/dL; Estimated Glomerular Filt Rate > 60; Glucose Fasting 90 mg/dL (60-99); HDL Cholesterol 46 mg/dL; LDL Cholesterol Calculated 63 mg/dl; Sodium 138 mmol/L (135-145); Total Protein 6.8 g/dL (6.5-8.0); Triglycerides 83 mg/dL
== END 2020-12-29 08:29 | disposition home or self-care (01) ==
LOC: HO.10HDL 08:28
PROVIDERS: Visit Provider Internal Medicine
DX: I10 Essential (primary) hypertension (principal); E78.00 Pure hypercholesterolemia, unspecified; Z86.73 Personal history of transient ischemic attack (TIA), and cerebral infarction without residual deficits
CPT/HCPCS: 36415; 80053; 80061; 85025

== ENCOUNTER 2021-03-31 14:51 | Outpatient (REF) | payer MEDICARE, BC, SELFPAY ==
[2021-03-31 15:20] LABS: MANUAL DIFF FLAG NO
[2021-03-31 15:21] LABS: Basophils Absolute Auto 0.1 X10*3/uL (0.0-0.2); Eosinophils Absolute Auto 0.2 X10*3/uL (0.0-0.4); Eosinophils Percent Auto 4.2 % (0-4); Hematocrit 37.2 % (42-52); Hemoglobin 12.5 g/dl (14.0-18.0); Imm Gran Abs Auto 0.01 X10*3/uL (0.00-0.03); Imm Gran Pct Auto 0.2 % (0.0-0.4); Lymphocytes Absolute Auto 1.9 X10*3/uL (1.2-4.9); Lymphocytes Percent Auto 37.8 % (20-40); Mean Corpuscular HGB Conc 33.6 g/dl (31.0-36.0); Mean Corpuscular Hemoglobin 30.2 pg (27.0-33.0); Mean Corpuscular Volume 89.9 fL (80-98); Mean Platelet Volume 9.9 fL (9.4-12.4); Monocytes Absolute Auto 0.5 X10*3/uL (0.1-1.2); Monocytes Percent Auto 9.1 % (2-11); Neutrophils Absolute Auto 2.4 X10*3/uL (2.0-8.3); Neutrophils Percent Auto 47.7 % (45-73); Platelet Count 218 X10*3/uL (160-400); Red Blood Count 4.14 X10*6/uL (4.60-5.80); Red Cell Distribution Width 11.8 % (11.0-16.0); White Blood Count 5.1 X10*3/uL (4.8-10.8)
[2021-03-31 15:45] LABS: Alanine Aminotransferase 33 U/L (0-40); Albumin Level 4.1 g/dL (3.5-5.0); Alkaline Phosphatase 74 U/L (39-117); Anion Gap 11 (12-20); Aspartate Amino Transferase 26 U/L (5-37); Bilirubin Total 0.7 mg/dL (0.0-1.0); Blood Urea Nitrogen 16 mg/dL (9-16); Calcium 9.2 mg/dL (8.4-10.2); Carbon Dioxide 28 mmol/L (22-29); Chloride 107 mmol/L (96-108); Estimated Glomerular Filt Rate > 60; Glucose Random 97 mg/dL (60-115); Iron 99 mcg/dL (45-160); Percent Iron Saturation 33 % (15-50); Potassium 4.6 mmol/L (3.3-5.1); Sodium 141 mmol/L (135-145); Total Iron Binding Capacity 302 mcg/dL (228-428); Total Protein 6.8 g/dL (6.5-8.0); Unsaturated Iron Binding 203 ug/dL
[2021-03-31 16:11] LABS: Vitamin B12 800 pg/mL (200-900)
== END 2021-03-31 14:52 | disposition home or self-care (01) ==
LOC: HO.LAB 14:51
PROVIDERS: PCP Internal Medicine; Visit Provider Internal Medicine
DX: E78.00 Pure hypercholesterolemia, unspecified (principal); I10 Essential (primary) hypertension; D64.9 Anemia, unspecified; Z86.73 Personal history of transient ischemic attack (TIA), and cerebral infarction without residual deficits
CPT/HCPCS: 36415; 80053; 82607; 83540; 85025

== ENCOUNTER 2021-11-18 07:30 | Outpatient (REF) | payer MEDICARE, BC, SELFPAY | END 2021-11-18 07:31 | disposition home or self-care (01) | LOC: HO.WFDLDS 07:30 | PROVIDERS: Visit Provider Internal Medicine | DX: Z13.89 Encounter for screening for other disorder (principal) ==

== ENCOUNTER 2021-11-18 07:33 | Outpatient (REF) | payer MEDICARE, BC, SELFPAY ==
[2021-11-18 11:31] LABS: MANUAL DIFF FLAG NO
[2021-11-18 11:40] LABS: Basophils Absolute Auto 0.1 X10*3/uL (0.0-0.2); Basophils Percent Auto 1.3 % (0-2); Eosinophils Absolute Auto 0.3 X10*3/uL (0.0-0.4); Eosinophils Percent Auto 5.6 % (0-4); Hematocrit 41.6 % (42.0-52.0); Hemoglobin 13.9 g/dl (14.0-18.0); Imm Gran Abs Auto 0.01 X10*3/uL (0.00-0.03); Imm Gran Pct Auto 0.2 % (0.0-0.4); Lymphocytes Absolute Auto 1.9 X10*3/uL (1.2-4.9); Lymphocytes Percent Auto 35.8 % (20-40); Mean Corpuscular HGB Conc 33.4 g/dl (31.0-36.0); Mean Corpuscular Hemoglobin 30.2 pg (27.0-33.0); Mean Corpuscular Volume 90.2 fL (80.0-98.0); Mean Platelet Volume 10.6 fL (9.4-12.4); Monocytes Absolute Auto 0.5 X10*3/uL (0.1-1.2); Monocytes Percent Auto 8.9 % (2-11); Neutrophils Absolute Auto 2.6 x10*3/uL (2.0-8.3); Neutrophils Percent Auto 48.2 % (45-73); Platelet Count 226 X10*3/uL (160-400); Red Blood Count 4.61 X10*6/uL (4.60-5.80); Red Cell Distribution Width 11.9 % (11.0-16.0); White Blood Count 5.4 X10*3/uL (4.8-10.8)
[2021-11-18 12:06] LABS: Alanine Aminotransferase 24 U/L (0-40); Albumin Level 4.2 g/dL (3.5-5.0); Alkaline Phosphatase 67 U/L (39-117); Anion Gap 9 (12-20); Aspartate Amino Transferase 24 U/L (5-37); Bilirubin Total 1.1 mg/dL (0.0-1.0); Blood Urea Nitrogen 16 mg/dL (9-16); Calcium 9.5 mg/dL (8.4-10.2); Carbon Dioxide 30 mmol/L (22-29); Chloride 104 mmol/L (96-108); Cholesterol 126 mg/dL; Estimated Glomerular Filt Rate > 60; Glucose Fasting 93 mg/dL (60-99); HDL Cholesterol 43 mg/dL; LDL Cholesterol Calculated 64 mg/dl; Potassium 3.8 mmol/L (3.3-5.1); Sodium 139 mmol/L (135-145); Total Protein 7.1 g/dL (6.5-8.0); Triglycerides 95 mg/dL
== END 2021-11-18 07:34 | disposition home or self-care (01) ==
LOC: HO.WFDLDS 07:33
PROVIDERS: Visit Provider Internal Medicine
DX: Z12.5 Encounter for screening for malignant neoplasm of prostate (principal); I10 Essential (primary) hypertension; E78.00 Pure hypercholesterolemia, unspecified; Z86.73 Personal history of transient ischemic attack (TIA), and cerebral infarction without residual deficits
CPT/HCPCS: 36415; 80053; 80061; 84153; 85025

== ENCOUNTER 2022-04-03 10:20 | Outpatient (REF) | payer MEDICARE, BC, SELFPAY ==
[2022-04-03 11:02] LABS: MANUAL DIFF FLAG NO
[2022-04-03 11:07] LABS: Basophils Absolute Auto 0.1 X10*3/uL (0.0-0.2); Basophils Percent Auto 1.1 % (0-2); Eosinophils Absolute Auto 0.3 X10*3/uL (0.0-0.4); Eosinophils Percent Auto 5.3 % (0-4); Hematocrit 39.5 % (42.0-52.0); Hemoglobin 13.3 g/dl (14.0-18.0); Imm Gran Abs Auto 0.01 X10*3/uL (0.00-0.03); Imm Gran Pct Auto 0.2 % (0.0-0.4); Lymphocytes Absolute Auto 1.6 X10*3/uL (1.2-4.9); Lymphocytes Percent Auto 29.5 % (20-40); Mean Corpuscular HGB Conc 33.7 g/dl (31.0-36.0); Mean Corpuscular Hemoglobin 30.6 pg (27.0-33.0); Mean Corpuscular Volume 90.8 fL (80.0-98.0); Mean Platelet Volume 10.1 fL (9.4-12.4); Monocytes Absolute Auto 0.5 X10*3/uL (0.1-1.2); Monocytes Percent Auto 9.7 % (2-11); Neutrophils Absolute Auto 2.9 x10*3/uL (2.0-8.3); Neutrophils Percent Auto 54.2 % (45-73); Platelet Count 226 X10*3/uL (160-400); Red Blood Count 4.35 X10*6/uL (4.60-5.80); Red Cell Distribution Width 11.8 % (11.0-16.0); White Blood Count 5.3 X10*3/uL (4.8-10.8)
[2022-04-03 12:07] LABS: Anion Gap 10 (12-20); Blood Urea Nitrogen 13 mg/dL (9-16); Calcium 9.1 mg/dL (8.4-10.2); Carbon Dioxide 28 mmol/L (22-29); Chloride 106 mmol/L (96-108); Estimated Glomerular Filt Rate > 60; Glucose Fasting 94 mg/dL (60-99); Iron 127 mcg/dL (45-160); Percent Iron Saturation 42 % (15-50); Potassium 4.2 mmol/L (3.3-5.1); Sodium 140 mmol/L (135-145); Total Iron Binding Capacity 306 mcg/dL (228-428); Unsaturated Iron Binding 179 ug/dL
[2022-04-03 12:10] LABS: Prostate Specific Antigen 3.14 ng/mL (<0.05-4.0)
== END 2022-04-03 10:21 | disposition home or self-care (01) ==
LOC: HO.10HDL 10:20
PROVIDERS: Visit Provider Internal Medicine
DX: Z12.5 Encounter for screening for malignant neoplasm of prostate (principal); R97.20 Elevated prostate specific antigen [PSA]; D64.9 Anemia, unspecified
CPT/HCPCS: 36415; 80048; 83540; 84153; 85025

== ENCOUNTER 2023-02-02 07:38 | Outpatient (REF) | payer MEDICARE, BC, SELFPAY ==
[2023-02-02 11:38] LABS: MANUAL DIFF FLAG NO
[2023-02-02 11:52] LABS: Appearance Urine Clear; Color Urine Yellow; Glucose Urine UA Negative (Negative); Leukocyte Esterase Urine Trace (Negative); Nitrite Urine Negative (Negative); Specific Gravity - Urine 1.015 (1.005-1.025); UMIC TRIGGER UA YES; Urine Blood Negative (Negative); Urine Ketones Negative (Negative); Urine Protein Negative (Neg-Trace)
[2023-02-02 11:56] LABS: Bacteria Urine None Seen (None Seen); Hyaline Casts Urine 0-2 /LPF (0-2); RBC Urine 0-2 /HPF (0-2); Squamous Epithelial Cell Urine 0-2 /HPF (0-2); WBC Urine 0-5 /HPF (0-5)
[2023-02-02 12:02] LABS: Basophils Absolute Auto 0.1 X10*3/uL (0.0-0.2); Eosinophils Absolute Auto 0.4 X10*3/uL (0.0-0.4); Eosinophils Percent Auto 7.5 % (0-4); Hematocrit 41.9 % (42.0-52.0); Hemoglobin 13.9 g/dl (14.0-18.0); Imm Gran Abs Auto 0.01 X10*3/uL (0.00-0.03); Imm Gran Pct Auto 0.2 % (0.0-0.4); Lymphocytes Absolute Auto 1.5 X10*3/uL (1.2-4.9); Lymphocytes Percent Auto 31.1 % (20-40); Mean Corpuscular HGB Conc 33.2 g/dl (31.0-36.0); Mean Corpuscular Hemoglobin 29.9 pg (27.0-33.0); Mean Corpuscular Volume 90.1 fL (80.0-98.0); Mean Platelet Volume 10.3 fL (9.4-12.4); Monocytes Absolute Auto 0.4 X10*3/uL (0.1-1.2); Monocytes Percent Auto 9.2 % (2-11); Neutrophils Absolute Auto 2.4 x10*3/uL (2.0-8.3); Platelet Count 237 X10*3/uL (160-400); Red Blood Count 4.65 X10*6/uL (4.60-5.80); White Blood Count 4.8 X10*3/uL (4.8-10.8)
[2023-02-02 12:31] LABS: Alanine Aminotransferase 27 U/L (0-40); Albumin Level 4.1 g/dL (3.5-5.0); Alkaline Phosphatase 72 U/L (39-117); Anion Gap 11 (12-20); Aspartate Amino Transferase 28 U/L (5-37); Bilirubin Total 1.2 mg/dL (0.0-1.0); Blood Urea Nitrogen 15 mg/dL (9-16); Calcium 9.4 mg/dL (8.4-10.2); Carbon Dioxide 28 mmol/L (22-29); Chloride 107 mmol/L (96-108); Cholesterol 130 mg/dL; Estimated Glomerular Filt Rate > 60; Glucose Fasting 91 mg/dL (60-99); HDL Cholesterol 42 mg/dL; LDL Cholesterol Calculated 73 mg/dl; Prostate Specific Antigen 2.86 ng/mL (<0.05-4.0); Sodium 142 mmol/L (135-145); Total Protein 6.7 g/dL (6.5-8.0); Triglycerides 76 mg/dL
== END 2023-02-02 07:39 | disposition home or self-care (01) ==
LOC: HO.WFDLDS 07:38
PROVIDERS: Visit Provider Internal Medicine
DX: Z00.00 Encounter for general adult medical examination without abnormal findings (principal); Z12.5 Encounter for screening for malignant neoplasm of prostate; Z86.73 Personal history of transient ischemic attack (TIA), and cerebral infarction without residual deficits
CPT/HCPCS: 36415; 80053; 80061; 81001; 84153; 85025

== ENCOUNTER 2023-06-18 09:28 | Outpatient (REF) | payer MEDICARE, BC, SELFPAY ==
[2023-06-18 10:50] LABS: MANUAL DIFF FLAG NO
[2023-06-18 10:52] LABS: Basophils Absolute Auto 0.1 X10*3/uL (0.0-0.2); Basophils Percent Auto 0.9 % (0-2); Eosinophils Absolute Auto 0.3 X10*3/uL (0.0-0.4); Eosinophils Percent Auto 5.3 % (0-4); Hematocrit 42.4 % (42.0-52.0); Imm Gran Abs Auto 0.01 X10*3/uL (0.00-0.03); Imm Gran Pct Auto 0.2 % (0.0-0.4); Lymphocytes Absolute Auto 1.6 X10*3/uL (1.2-4.9); Lymphocytes Percent Auto 29.7 % (20-40); Mean Corpuscular Hemoglobin 30.2 pg (27.0-33.0); Mean Corpuscular Volume 91.6 fL (80.0-98.0); Mean Platelet Volume 10.1 fL (9.4-12.4); Monocytes Absolute Auto 0.5 X10*3/uL (0.1-1.2); Monocytes Percent Auto 8.6 % (2-11); Neutrophils Percent Auto 55.3 % (45-73); Platelet Count 220 X10*3/uL (160-400); Red Blood Count 4.63 X10*6/uL (4.60-5.80); White Blood Count 5.5 X10*3/uL (4.8-10.8)
[2023-06-18 11:14] LABS: Anion Gap 12 (12-20); Blood Urea Nitrogen 15 mg/dL (9-16); Calcium 9.3 mg/dL (8.4-10.2); Carbon Dioxide 27 mmol/L (22-29); Chloride 105 mmol/L (96-108); Estimated Glomerular Filt Rate > 60; Glucose Random 96 mg/dL (60-115); Iron 124 mcg/dL (45-160); Percent Iron Saturation 47 % (15-50); Potassium 4.4 mmol/L (3.3-5.1); Sodium 140 mmol/L (135-145); Total Iron Binding Capacity 264 mcg/dL (228-428); Unsaturated Iron Binding 140 ug/dL
== END 2023-06-18 09:29 | disposition home or self-care (01) ==
LOC: HO.10HDL 09:28
PROVIDERS: Visit Provider Internal Medicine
DX: D64.9 Anemia, unspecified (principal); I10 Essential (primary) hypertension
CPT/HCPCS: 36415; 80048; 83540; 85025

== ENCOUNTER 2024-02-29 07:31 | Outpatient (REF) | payer MEDICARE, BC, SELFPAY ==
[2024-02-29 11:21] LABS: MANUAL DIFF FLAG NO
[2024-02-29 11:29] LABS: Basophils Percent Auto 0.8 % (0-2); Eosinophils Absolute Auto 0.4 X10*3/uL (0.0-0.4); Eosinophils Percent Auto 7.3 % (0-4); Hematocrit 40.9 % (42.0-52.0); Hemoglobin 13.7 g/dl (14.0-18.0); Imm Gran Abs Auto 0.02 X10*3/uL (0.00-0.03); Imm Gran Pct Auto 0.4 % (0.0-0.4); Lymphocytes Absolute Auto 1.8 X10*3/uL (1.2-4.9); Lymphocytes Percent Auto 34.3 % (20-40); Mean Corpuscular HGB Conc 33.5 g/dl (31.0-36.0); Mean Corpuscular Hemoglobin 31.4 pg (27.0-33.0); Mean Corpuscular Volume 93.6 fL (80.0-98.0); Monocytes Absolute Auto 0.5 X10*3/uL (0.1-1.2); Monocytes Percent Auto 9.6 % (2-11); Neutrophils Absolute Auto 2.5 x10*3/uL (2.0-8.3); Neutrophils Percent Auto 47.6 % (45-73); Platelet Count 219 X10*3/uL (160-400); Red Blood Count 4.37 X10*6/uL (4.60-5.80); Red Cell Distribution Width 12.2 % (11.0-16.0); White Blood Count 5.3 X10*3/uL (4.8-10.8)
[2024-02-29 11:59] LABS: Alanine Aminotransferase 27 U/L (0-40); Albumin Level 4.2 g/dL (3.5-5.0); Alkaline Phosphatase 66 U/L (39-117); Anion Gap 10 (12-20); Aspartate Amino Transferase 27 U/L (5-37); Bilirubin Total 1.1 mg/dL (0.0-1.0); Blood Urea Nitrogen 11 mg/dL (9-16); Calcium 9.4 mg/dL (8.4-10.2); Carbon Dioxide 28 mmol/L (22-29); Chloride 106 mmol/L (96-108); Cholesterol 179 mg/dL (<200); Estimated Glomerular Filt Rate > 60; Glucose Fasting 89 mg/dL (60-99); HDL Cholesterol 61 mg/dL (>40); LDL Cholesterol Calculated 86 mg/dL (<100); Potassium 4.1 mmol/L (3.3-5.1); Sodium 140 mmol/L (135-145); Total Protein 7.1 g/dL (6.5-8.0); Triglycerides 164 mg/dL (<150)
[2024-02-29 12:09] LABS: Prostate Specific Antigen 3.24 ng/mL (<0.05-4.0)
== END 2024-02-29 07:32 | disposition home or self-care (01) ==
LOC: HO.WFDLDS 07:31
PROVIDERS: Visit Provider Internal Medicine
DX: I10 Essential (primary) hypertension (principal); E78.00 Pure hypercholesterolemia, unspecified; R35.1 Nocturia; Z12.5 Encounter for screening for malignant neoplasm of prostate
CPT/HCPCS: 36415; 80053; 80061; 84153; 85025

== ENCOUNTER 2025-08-25 10:19 | Outpatient (REF) | payer MEDICARE, BC, SELFPAY ==
[2025-08-25 13:10] LABS: Hematocrit 42.2 % (42.0-52.0); Hemoglobin 14.2 g/dl (14.0-18.0); Mean Corpuscular HGB Conc 33.6 g/dl (31.0-36.0); Mean Corpuscular Hemoglobin 32.3 pg (27.0-33.0); Mean Corpuscular Volume 95.9 fL (80.0-98.0); NRBC Abs Auto 0.000 X10*3/uL (0.0-0.012); NRBC Pct Auto 0.0 /100WBC (0.0-0.2); Platelet Count 205 X10*3/uL (160-400); Red Blood Count 4.40 X10*6/uL (4.60-5.80); White Blood Count 5.6 X10*3/uL (4.8-10.8)
[2025-08-25 13:33] LABS: Alanine Aminotransferase 17 U/L (0-40); Albumin Level 4.4 g/dL (3.5-5.0); Alkaline Phosphatase 68 U/L (39-117); Anion Gap 8 (12-20); Aspartate Amino Transferase 26 U/L (5-37); Blood Urea Nitrogen 15 mg/dL (9-16); Calcium 9.3 mg/dL (8.4-10.2); Carbon Dioxide 30 mmol/L (22-29); Chloride 105 mmol/L (96-108); Cholesterol 240 mg/dL (<200); Estimated Glomerular Filt Rate > 60; HDL Cholesterol 62 mg/dL (>40); Potassium 3.9 mmol/L (3.3-5.1); Sodium 139 mmol/L (135-145); Total Protein 7.3 g/dL (6.5-8.0); Triglycerides 272 mg/dL (<150)
[2025-08-25 13:53] LABS: Ferritin 394 ng/mL (20-250)
== END 2025-08-25 10:20 | disposition home or self-care (01) ==
LOC: HO.10HDL 10:19
PROVIDERS: Visit Provider Physician Assistant Medical
DX: Z00.00 Encounter for general adult medical examination without abnormal findings (principal); F10.10 Alcohol abuse, uncomplicated; I10 Essential (primary) hypertension; E78.00 Pure hypercholesterolemia, unspecified
CPT/HCPCS: 36415; 80053; 80061; 82306; 82728; 84443; 85027